=== PATIENT | male | born 1985 | race African-American/Black ===

== ENCOUNTER 2018-05-13 18:31 | Emergency (ER) | payer OTHER ==
[~2018-05-13] VITALS: Ht 172.7 cm; Wt 111.1 kg
[~2018-05-13 18:31] MED LIST: CARAFATE 1 GM TA1 G1 PO; ONDANSETRON HCL4 M2 PO
[2018-05-13] MEDS ORDERED: ZANTAC 150MG T150 MG PO (19:18)
[2018-05-13 19:40] LABS: ABSOLUTE NEUTROPHILS 4.9 thou/uL (1.4-8.2); BASOPHILS 0.5 % (0.0-2.0); EOSINOPHILS 2.1 % (0.0-3.0); HEMATOCRIT 43.4 % (42.0-52.0); HEMOGLOBIN 14.4 gm/dL (14.0-18.0); LYMPHOCYTES 28.4 % (24.0-44.0); MCH 25.7 pg (26.0-34.0); MCHC 33.2 g/dL (28.0-37.0); MCV 77.4 fL (80.0-100.0); MONOCYTES 7.7 % (1.0-8.0); PLATELET COUNT 222 thou/uL (150-400); POLYS 61.3 % (36.0-66.0); RDW 15.5 % (10.5-14.5); WBC 7.9 thou/uL (4.0-11.0)
[2018-05-13 19:48] LABS: ANION GAP 8 mmol/L (7-16); BUN 18 mg/dL (7-18); CALCIUM 9.1 mg/dL (8.5-10.1); CHLORIDE 104 mmol/L (98-107); CO2 26 mmol/L (21-32); CREATININE 1.2 mg/dL (0.7-1.3); GLUCOSE 135 mg/dL (74-106); POTASSIUM 3.4 mmol/L (3.5-5.1); SODIUM 138 mmol/L (136-145)
[2018-05-13 19:57] LABS: TROPONIN-I <0.06 ng/mL (<0.06)
[2018-05-13 20:20] VITALS: BP 121/78
--- NOTE | 2018-05-14 13:39 | EKG ---
[place] [address] [facility] [employer] [place] [address] ELECTROCARDIOGRAM REPORT Name: VANNESSA BELTRAN Room #: FEI Beltre#: [id number] ������������������ Admission: 05/13/18 ������������������ Attend Phys: Discharge: 05/13/18 ������������������ Date of : 83 Report #: [id number] ����������������������������������������������������������������� [id number] THIS REPORT FOR: //name// [facility] ED Test Date: 2018-05-13 Test Time: 18:37:55 Pat Name: VANNESSA BELTRAN Department: Room: Gender: [employer] Machine: : 1985 Requested By: Cornelius Wigigns Order Number: [id number] MD: Dannie Tadeo Measurements Intervals [place] Rate: 71 P: 46 MD: 158 QRS: 2 QRSD: 96 T: -6 QT: 380 QTc: 413 Interpretive Statements Sinus rhythm Borderline T abnormalities, inferior leads No previous ECG available for comparison Electronically Signed On 05-14-2018 13:39:37 CDT by Dannie Tadeo [email or web address] ��������������������������������������������� <ELECTRONICALLY SIGNED> ���������������������������������������� By: Dannie Tadeo MD, [facility] ��������������������������������������������� 05/14/18 [id number] Dannie Tadeo MD, FACC /EPI
== END 2018-05-13 20:22 | disposition home or self-care (01) ==
LOC: ER 18:31
PROVIDERS: Emergency Medicine
DX: R07.89 Other chest pain (principal); K21.9 Gastro-esophageal reflux disease without esophagitis; F12.10 Cannabis abuse, uncomplicated